=== PATIENT | male | born 1965 | race Caucasian/White ===

== ENCOUNTER 2020-12-22 10:19 | Inpatient (IN) | payer OTHER ==
[~2020-12-22] VITALS: Ht 182.9 cm; Wt 91.9 kg
[2020-12-22 12:21] LABS: BASOPHIL 0.3 % (0-2); EOSINOPHIL 0.3 % (0-5); HCT 44.6 % (42.0-52.0); HGB 15.4 g/dl (13.2-18.0); LYMPHOCYTE 17.6 % (15-48); MCHC 34.5 g/dL (32.0-36.0); MCV 95.7 fL (78.0-100.0); MONOCYTE 9.8 % (0-12); MPV 11.3 fL (6.0-9.5); NEUTROPHIL 70.7 % (41-80); NRBC 0; PLT 142 K/uL (150-400); RBC 4.66 M/uL (4.70-6.00); RDW 12.8 % (11.5-14.0); WBC 3.1 K/uL (4.0-10.5)
[2020-12-22 12:29] LABS: PRO-BNP 29 pg/mL (<125)
[2020-12-22 12:44] LABS: ALBUMIN 3.3 g/dL (3.4-5.0); BILIRUBIN - TOTAL 0.6 mg/dL (0.2-1.0); BUN/CREAT RATIO (CALC) 16.2 RATIO; C-REACTIVE PROTEIN 10.4 mg/dL (<=0.90); CREATININE 1.11 mg/dL (0.67-1.17); GLOBULIN (CALCULATION) 4.2 g/dL; MAGNESIUM 2.3 mg/dL (1.8-2.4); POTASSIUM 3.7 mmol/L (3.5-5.1); TOTAL PROTEIN 7.5 g/dL (6.4-8.2)
[2020-12-22 12:49] LABS: LACTIC ACID 1.4 mmol/L (0.4-1.9)
[2020-12-22] MEDS ORDERED: ASPIRIN EC81 MG PO (17:55)
[2020-12-23 06:05] LABS: HGB 14.8 g/dl (13.2-18.0); MCH 33.1 pg (25.0-31.0); MCHC 34.4 g/dL (32.0-36.0); MCV 96.2 fL (78.0-100.0); MPV 10.5 fL (6.0-9.5); RBC 4.47 M/uL (4.70-6.00); RDW 12.9 % (11.5-14.0); WBC 4.9 K/uL (4.0-10.5)
[2020-12-23 06:58] LABS: ALBUMIN 2.9 g/dL (3.4-5.0); BILIRUBIN - DIRECT 0.1 mg/dL (0.00-0.20); BILIRUBIN - TOTAL 0.4 mg/dL (0.2-1.0); BUN/CREAT RATIO (CALC) 19.5 RATIO; CREATININE 0.87 mg/dL (0.67-1.17); GLOBULIN (CALCULATION) 4.1 g/dL; POTASSIUM 5.1 mmol/L (3.5-5.1)
[2020-12-25 06:27] LABS: HCT 39.2 % (42.0-52.0); HGB 13.4 g/dl (13.2-18.0); MCH 33.6 pg (25.0-31.0); MCHC 34.2 g/dL (32.0-36.0); MCV 98.2 fL (78.0-100.0); MPV 10.2 fL (6.0-9.5); RBC 3.99 M/uL (4.70-6.00); RDW 12.9 % (11.5-14.0)
[2020-12-25 06:42] LABS: CREATININE 0.75 mg/dL (0.67-1.17); POTASSIUM 4.1 mmol/L (3.5-5.1)
[2020-12-26 06:03] LABS: HCT 37.4 % (42.0-52.0); HGB 12.9 g/dl (13.2-18.0); MCH 33.5 pg (25.0-31.0); MCHC 34.5 g/dL (32.0-36.0); MCV 97.1 fL (78.0-100.0); MPV 10.6 fL (6.0-9.5); RBC 3.85 M/uL (4.70-6.00); RDW 12.9 % (11.5-14.0); WBC 5.6 K/uL (4.0-10.5)
[2020-12-26 06:12] LABS: BUN/CREAT RATIO (CALC) 23.1 RATIO; CREATININE 0.78 mg/dL (0.67-1.17); POTASSIUM 3.8 mmol/L (3.5-5.1)
--- NOTE | 2020-12-26 12:29 | NUR ---
12/26/20 A referral was made to [facility] for home 02. A report was given to MARIE Ashby RN.
--- NOTE | 2020-12-27 14:11 | NUR ---
12/27/20 A referral was made to [facility] for home infusion per patient choice; affliation explained. patient is aware of co-pay of $775.00. [facility] co-pays and deductibles have not been met. Report given to Dr. Saucedo and PA VanceU RN via [employer].
[2020-12-27] MEDS ORDERED: PROVENTIL HFA6.7 GM INH (15:42)
[2020-12-27] MEDS ORDERED: MEDROL 4MG DOSEP4 MG PO (15:42)
[2020-12-27] MEDS ORDERED: PEPCID AC20 MG PO (15:42)
[2020-12-27] MEDS ORDERED: ATROVENT HFA12.9 GM INH (15:42)
--- NOTE | 2020-12-27 18:07 | NUR ---
1235 MIDLINE ORDERED FOR IV ANTIBIOTICS AT HOME, PROCEDURE EXPLAINED TO PT. PT AGRRES TO HAVE THE PROCEDURE. PT WAS PREPPED AND DRAPED IN STERILE FASHION, THE PT'S LEFT UPPER ARM BASILIC VEIN WAS VISUALIZED USING THE SITE RITE #6 US MACHINE. A 21 GAUGE GUIDE NEEDLE WAS USED. GOOD BLOOD RETURN WAS NOTED. THE GUDIE WIRE THREADED EASILY. THE NEEDLE WAS REMOVED AND THE MIDLINE CATHETER WAS PLACED OVER THE WIRE. THE WIRE AND SHEATH WERE REMOVED. GOOD BLOOD RETURN WAS NOTED. A CONNECTOR WAS FLUSHED AND PLACED ON THE CATHETER AND A BIOPATCH WAS PLACED ON TOP OF THE INSERTION SITE. A STERILE TEGADERM WAS PLACED OVER THE MIDLINE CATHETER. PT TOLERATED THE PROCEDURE WELL. PT HAS A 29 GAUGE 10CM POWERGLIDE MIDLINE CATHETER. GOOD FOR 29 DAYS. THIS IS NOT A CENTRAL LINE. REPORT WAS GIVEN TO TIFFANIE YU R.N. IN TCU. THE PATIENT'S BED WAS LOWERED TO THE GROUND FOR SAFETY AND THE CALL OMER WAS WITHIN REACH, UPPER SIDE RAILS WERE UP X 2.
== END 2020-12-27 16:44 | disposition home health service (06) | DRG 871 ==
LOC: FER 10:19 → FTCU 16:10
PROVIDERS: Emergency Medicine; ADMIT Hospitalist
PROC: XW033E5 Introduction of Remdesivir Anti-infective into Peripheral Vein, Percutaneous Approach, New Technology Group 5 (ICD-10-PCS; 2020-12-22)
PROC: 8E0ZXY6 Isolation (ICD-10-PCS; principal; 2020-12-26)
PROC: 05HY33Z Insertion of Infusion Device into Upper Vein, Percutaneous Approach (ICD-10-PCS; 2020-12-27)
DX: A41.89 Other specified sepsis (principal); U07.1 COVID-19; J96.01 Acute respiratory failure with hypoxia; J12.82 Pneumonia due to coronavirus disease 2019; D84.821 Immunodeficiency due to drugs; L10.0 Pemphigus vulgaris; R65.20 Severe sepsis without septic shock; A41.1 Sepsis due to other specified staphylococcus; E78.5 Hyperlipidemia, unspecified; Z91.041 Radiographic dye allergy status; Z91.013 Allergy to seafood; Z90.89 Acquired absence of other organs
CPT/HCPCS: 36415; 36600; 71275; 80048; 80053; 80202; 82248; 82728; 82803; 83605; 83735; 83880; 84145; 84484; 85025; 85379; 86140; 87040; 87077; 87186; 93005; 94640; C1751; C9399; J0696; J1100; J1170; J1642; J1650; J2405; J7030; J7050; Q9967; U0002